=== PATIENT | female | born 1995 | race Caucasian/White ===

== ENCOUNTER 2018-04-06 11:58 | Inpatient (IN) ==
[2018-04-06] MEDS ORDERED: LIDOCAINE HCL 50 ML VIAL PERI PRN (12:25)
[2018-04-06] MEDS ORDERED: RINGER'S SOLUTION,LACTATED 1,000 ML IV ONE (12:25)
[2018-04-06] MEDS ORDERED: OXYTOCIN/DEXTROSE 5%-WATER 30 UNITS/500 ML BAG IV ONE ×2 (12:25→14:40)
[2018-04-06] MEDS ORDERED: ONDANSETRON HCL/PF 2 MG/ML VIAL IV PRN ×2 (12:25→12:30)
[2018-04-06] MEDS ORDERED: RINGER'S SOLUTION,LACTATED 1,000 ML IV PRN (12:25)
[2018-04-06] MEDS ORDERED: NALBUPHINE HCL 10 MG/ML AMPUL IV PRN ×2 (12:25)
[2018-04-06] MEDS ORDERED: NALOXONE HCL 1 MG/1 ML SYRG IV PRN (12:30)
[2018-04-06] MEDS ORDERED: BUPIVACAINE HCL/PF 30 ML VIAL EP SCH (12:30)
[2018-04-06] MEDS ORDERED: BUPIVACAINE HCL/0.9 % NACL/PF 250 ML EP PRN (12:30)
--- NOTE | 2018-04-06 12:40 | HP ---
Chief Complaint - Chief Complaint Date of Service: 04/06/18 Time of Service: 12:30 Chief Complaint: Labor History of Present Illness: The patient presents to labor and delivery complaining of contractions and lots of discharge/mucosy or bloody. Denies roberto carlos vaginal bleeding or loss of fluid. Fetus is active. Medical History (Last Reviewed 03/13/18 @ 13:20 by Jack Brown RN) Hemorrhoids Onset Date: Unknown Recurrent loss, currently Onset Date: ~07/26/14 Spontaneous Onset Date: ~10/2013 approx. 8 wks Threatened Onset Date: ~07/26/14 Threatened labor Onset Date: 02/14/16 shortened cervix Thrombocytopenia affecting 12/27/14, 09/17/17 Depression Onset Date: ~04/2014 tx'd with wellbutrin. Stopped medication after 1 month d/t ineffectiveness Anemia Onset Date: 01/27/162015 & 2018-with pregnancies Family History: Family History (Last Reviewed 03/13/18 @ 13:20 by Jack Brown RN) Aunt Breast cancer Father Thyroid cancer Mother Diabetes resolved with diet Hypertension Anxiety Social History: Preferred Language Syriac Smoking Status Never smoker Abuse History No History of abuse Psych History Hx of Depression (Last Updated 04/02/18 @ 10:11 by Ken Farias DO) No Social History Section defined Review Of Systems (GEN) - Review of Systems Generalized/Overall Review: Present: No Symptoms Reported Misc: All systems neg except as marked Immunizations: IMMUNIZATION HX Immunizations Up to Date Yes History of Influenza Vaccine No Hx Pneumococcal Vaccination No Allergies/Adverse Reactions: Allergies Allergy/AdvReac Type Severity Reaction Status Date / Time No Known Allergies Allergy Verified 03/13/18 13:20 Home Medications: HOME MEDICATIONS Vits96/Iron Fum/Folic [ S] 1 tab PO DAILY 03/01/15 [Last Taken 04/01/16 19:36] psyllium husk 3.4 gram/5.4 gram oral powder 1 tbs PO TID 04/02/18 [Last Taken Unknown] Exam - Exam Vital Signs: 115/80 101 18 37 C Constitutional: Present: Alert, Oriented x3, Cooperative Abdomen: Present: soft, nontender, nondistended Extremity: Present: non-tender, no calf tenderness Skin Exam: Present: normal color, warm/dry, no cyanosis Appearance: Present: appropriate appearance Eye contact: Present: cooperative Thoughts: Present: normal thought pattern Assessment/Plan - Narrative Narrative: 22 yo @ 37w 2d in active labor and ruptured History of thrombocytopenia this . Check CBC. GBS negative: GBS prophylaxis not indicated
[2018-04-06 12:59] LABS: Hematocrit 31.8 % (37.0-47.0); Hemoglobin 10.3 gm/dL (12.5-16.0); Mean Cell Volume 84.1 fl (78-100); Mean Corpuscular Hemoglobin 27.2 pg (27-31); Mean Corpuscular Hgb Conc 32.4 g/dl (32-36); Mean Platelet Volume 11.2 fl (8-12.5); Neutrophil % 81.6 % (42-75.0); Platelet Count 119 K/mm3 (150-450); Red Blood Count 3.78 M/mm3 (4.2-5.4); Red Cell Distribution Width 12.7 % (11.5-14.0); White Blood Count 15.9 K/mm3 (4.0-10.5)
--- NOTE | 2018-04-06 13:06 | ANES ---
Anesthesia Pre Procedure Eval Vitals/Labs: Last Vital Signs Temp 37.0 C 04/06/18 13:01 Pulse 101 H 04/06/18 13:01 Resp 18 04/06/18 13:01 BP 115/80 04/06/18 13:01 Pulse Ox 100 04/06/18 13:01 Laboratory Last Values WBC 15.9 K/mm3 (4.0-10.5) H 04/06/18 12:51 RBC 3.78 M/mm3 (4.2-5.4) L 04/06/18 12:51 Hgb 10.3 gm/dL (12.5-16.0) L 04/06/18 12:51 Hct 31.8 % (37.0-47.0) L 04/06/18 12:51 MCV 84.1 fl (78-100) 04/06/18 12:51 MCH 27.2 pg (27-31) 04/06/18 12:51 MCHC 32.4 g/dl (32-36) 04/06/18 12:51 RDW 12.7 % (11.5-14.0) 04/06/18 12:51 Plt Count 119 K/mm3 (150-450) L 04/06/18 12:51 MPV 11.2 fl (8-12.5) 04/06/18 12:51 Immature Gran % (Auto) 2.20 % (0.001-0.429) H 04/06/18 12:51 Immature Gran # (Auto) 0.35 K/mm3 (0.000-0.0310) H 04/06/18 12:51 Neutrophils % 81.6 % (42-75.0) H 04/06/18 12:51 Lymphocytes % 8.5 % (20-51) L 04/06/18 12:51 Monocytes % 7.0 % (0.0-9) 04/06/18 12:51 Eosinophils % 0.4 % (0.0-3.0) 04/06/18 12:51 Basophils % 0.3 % (0.0-1.0) 04/06/18 12:51 Nucleated RBC % 0.0 k/mm3 (0-1) 04/06/18 12:51 Neutrophils # 13.0 K/mm3 (1.3-6.0) H 04/06/18 12:51 Lymphocytes # 1.35 k/mm3 (1.5-3.5) L 04/06/18 12:51 Monocytes # 1.1 k/mm3 (0.0-1.0) H 04/06/18 12:51 Eosinophils # 0.1 k/mm3 (0.0-0.7) 04/06/18 12:51 Absolute Basophils 0.0 k/mm3 (0.0-0.1) 04/06/18 12:51 HOME MEDICATIONS Vits96/Iron Fum/Folic [ S] 1 tab PO DAILY 03/01/15 [Last Taken 04/01/16 19:36] psyllium husk 3.4 gram/5.4 gram oral powder 1 tbs PO TID 04/02/18 [Last Taken Unknown] Allergies/Adverse Reactions: Allergies Allergy/AdvReac Type Severity Reaction Status Date / Time No Known Allergies Allergy Verified 04/06/18 13:00 - Planned Procedure Planned Procedure: labor epidural Medication List Reviewed:: Yes Allergies Verified: Yes Medical History (Last Reviewed 04/06/18 @ 13:05 by Evans Delaney CRNA) Hemorrhoids Onset Date: Unknown Recurrent loss, currently Onset Date: ~07/26/14 Spontaneous Onset Date: ~10/2013 approx. 8 wks Threatened Onset Date: ~07/26/14 Threatened labor Onset Date: 02/14/16 shortened cervix Thrombocytopenia affecting 12/27/14, 09/17/17 Depression Onset Date: ~04/2014 tx'd with wellbutrin. Stopped medication after 1 month d/t ineffectiveness Anemia Onset Date: 01/27/16 2016 & 2018-with pregnancies Family History (Last Reviewed 04/06/18 @ 13:05 by Evans Delaney CRNA) Aunt Breast cancer Father Thyroid cancer Mother Diabetes resolved with diet Hypertension Anxiety - Anesthesia Assessment and Plan ASA Class: PS, II Anesthesia Type Plan: Epidural
--- NOTE | 2018-04-06 13:25 | ANES ---
Anesthesia Procedure Note Procedure Note: ANESTHESIA PROCEDURE NOTE Date of Procedure: 04/06/2018. Time of procedure: 1310. Performed by: Evans Delaney CRNA Head Strength And Conditioning Coach: None. Preprocedure diagnosis: Active labor. Post procedure diagnosis: Same. Procedure: Insertion of labor epidural. Indications: The patient is a 22 -year-old female in active labor requesting labor epidural for pain management. Findings: See below. Details of the procedure: The patient was placed in a sitting position. DuraPrep as well as Betadine swabs X3 was applied to the patient's back. Patient was then draped in a sterile fashion. Lidocaine 1% was infiltrated to the skin and subcutaneous tissues at the level of the L3-4 interspace. The epidural space was identified using a 18-gauge Tuohy needle with [id number] technique. Epidural catheter was inserted to a depth of 9 centimeters at skin. Negative test dose was elicited using 3 mL of 1.5% preservative-free lidocaine plus epinephrine 1 200,000. The epidural catheter was then taped and secured in place. A loading dose of 8 mL of 0.25% preservative-free bupivacaine was administered to the epidural catheter after negative aspiration for blood and CSF. EBL: Minimal. Fluids: N/A. Specimen: N/A. Post procedure condition: The patient tolerated the procedure well. No complications were noted. Thank you for this consultation. Evans Delaney CRNA
--- NOTE | 2018-04-06 13:26 | ANES ---
Post Anesthesia Assessment - Vital Signs Vitals: Last Vital Signs Temp 36.8 C 04/06/18 13:19 Pulse 106 H 04/06/18 13:19 Resp 20 04/06/18 13:19 BP 114/69 04/06/18 13:19 Pulse Ox 99 04/06/18 13:19 Airway Patency: Normal - Mental Status Level Of Consciousness: Awake - N/V Assessment Nausea/Vomiting Presence: None Dehydration:: No
[2018-04-06 14:10] LABS: Cocaine Ur Negative (NEGATIVE); Urine Barbiturate Negative (NEGATIVE); Urine Benzodiazepines Negative (NEGATIVE); Urine Opiates Negative (NEGATIVE); Urine PCP Negative (NEGATIVE); Urine THC Negative (NEGATIVE)
--- NOTE | 2018-04-06 14:39 | OR ---
Operative Report - Dictated Report Narrative: Date: 04/06/2018 Time of delivery: 1324 Gender: male weight: 3035 grams APGARS: 9/9 The patient is a 22 yo @ 37w 2d who presented to labor and delivery ruptured and in active labor. She progressed to complete dilation. The delivered in the NIDHI presentation over an intact perineum. A loose nuchal cord was reduced. Cord clamping was delayed for 60 seconds. The placenta was delivered by expression and appeared intact. No lacerations were noted. Lacerations: none EBL: 50 mL Complications: none
[2018-04-06] MEDS ORDERED: oxyCODONE HCL/ACETAMINOPHEN 1 TAB TABLET PO PRN (14:40)
[2018-04-06] MEDS ORDERED: GLYCERIN/WITCH HAZEL LEAF 40 APPL BOX TP PRN (14:40)
[2018-04-06] MEDS ORDERED: BENZOCAINE/MENTHOL 81 SPRAY CAN TP PRN (14:40)
[2018-04-06] MEDS ORDERED: HYDROCORTISONE 30 APPL TUBE TP PRN (14:40)
[2018-04-06] MEDS ORDERED: diphenhydrAMINE HCL 25 MG CAPSULE PO PRN (14:40)
[2018-04-06] MEDS ORDERED: BISACODYL 10 MG SUPP.RECT RC PRN (14:40)
[2018-04-06] MEDS ORDERED: SENNOSIDES 8.6 MG TABLET PO PRN (14:40)
[2018-04-06] MEDS: IBUPROFEN 800 MG TABLET PO PRN (17:55)
[2018-04-06] MEDS: oxyCODONE HCL/ACETAMINOPHEN 1 TAB TABLET PO PRN ×2 (17:55→21:40)
[2018-04-06] MEDS: DOCUSATE SODIUM 100 MG CAPSULE PO SCH (21:07)
[2018-04-07] MEDS: IBUPROFEN 800 MG TABLET PO PRN ×4 (00:07→17:42)
[2018-04-07] MEDS: oxyCODONE HCL/ACETAMINOPHEN 1 TAB TABLET PO PRN ×4 (06:11→21:13)
--- NOTE | 2018-04-07 07:34 | PN ---
Subjective - Date and Time Seen Date: 04/07/18 Time: 07:33 Subjective Narrative: Pt without complaints. VB is normal Objective Objective Narrative: See vital signs - Review of Systems Generalized/Overall Review: Reports: No Symptoms Reported Misc: All systems neg except as marked - Vitals Vitals: Last Vital Signs Temp 36.4 C 04/07/18 00:27 Pulse 86 04/07/18 00:27 Resp 16 04/07/18 00:27 BP 116/65 04/07/18 00:27 Pulse Ox 97 04/07/18 00:27 - Abnormal Lab Findings Abnormal Lab Findings: Abnormal Lab Results 04/06/18 Range/Units 12:51 WBC 15.9 H (4.0-10.5) K/mm3 RBC 3.78 L (4.2-5.4) M/mm3 Hgb 10.3 L (12.5-16.0) gm/dL Hct 31.8 L (37.0-47.0) % Plt Count 119 L (150-450) K/mm3 Immature Gran % (Auto) 2.20 H (0.001-0.429) % Immature Gran # (Auto) 0.35 H (0.000-0.0310) K/mm3 Neutrophils % 81.6 H (42-75.0) % Lymphocytes % 8.5 L (20-51) % Neutrophils # 13.0 H (1.3-6.0) K/mm3 Lymphocytes # 1.35 L (1.5-3.5) k/mm3 Monocytes # 1.1 H (0.0-1.0) k/mm3 - Exam Constitutional: Present: Alert, Oriented x3, Cooperative, No distress Abdomen: Present: soft, nontender, nondistended - fundus is firm Extremity: Present: non-tender, no calf tenderness Skin Exam: Present: normal color, warm/dry, no cyanosis Appearance: Present: appropriate appearance Eye contact: Present: cooperative Thoughts: Present: normal thought pattern Assessment/Plan Plan Narrative: PPD 1 s/p Doing well Discharge tomorrow
[2018-04-07] MEDS: DOCUSATE SODIUM 100 MG CAPSULE PO SCH ×2 (10:00→21:13)
[2018-04-08] MEDS: oxyCODONE HCL/ACETAMINOPHEN 1 TAB TABLET PO PRN ×2 (00:28→10:38)
[2018-04-08] MEDS: IBUPROFEN 800 MG TABLET PO PRN ×2 (00:28→10:38)
--- NOTE | 2018-04-08 07:29 | PN ---
Subjective - Date and Time Seen Date: 04/08/18 Time: 07:27 Subjective Narrative: Pt without complaints. VB is normal Objective Objective Narrative: See vital signs - Review of Systems Generalized/Overall Review: Reports: No Symptoms Reported Misc: All systems neg except as marked - Vitals Vitals: Last Vital Signs Temp 36.4 C 04/08/18 00:29 Pulse 72 04/08/18 00:29 Resp 16 04/08/18 00:29 BP 137/77 04/08/18 00:29 Pulse Ox 97 04/08/18 00:29 - Exam Constitutional: Present: Alert, Oriented x3, Cooperative, No distress Abdomen: Present: soft, nontender, nondistended Extremity: Present: non-tender, no calf tenderness Skin Exam: Present: normal color, warm/dry, no cyanosis Appearance: Present: appropriate appearance Eye contact: Present: cooperative Thoughts: Present: normal thought pattern Assessment/Plan Plan Narrative: PPD 2 s/p Doing well Discharge home
[2018-04-08] MEDS: DOCUSATE SODIUM 100 MG CAPSULE PO SCH (10:38)
[2018-04-08 13:29] VITALS: BP 105/71
== END 2018-04-08 11:20 | disposition home or self-care (01) | DRG 807 ==
LOC: OBCLINIC 11:58 → OB 12:23
PROVIDERS: ADMIT Obstetrics & Gynecology; ATTEND Obstetrics & Gynecology
CPT/HCPCS: 36415; 59025; 80307; 85025; 86850; 86900

== ENCOUNTER 2020-05-17 05:58 | Inpatient (IN) ==
[2020-05-17] MEDS ORDERED: NALOXONE HCL 1 MG/1 ML SYRG IV PRN (06:48)
[2020-05-17] MEDS ORDERED: ONDANSETRON HCL/PF 2 MG/ML VIAL IV PRN (06:48)
[2020-05-17] MEDS ORDERED: BUPIVACAINE HCL/0.9 % NACL/PF 250 ML EP PRN (06:48)
[2020-05-17 06:49] LABS: Hematocrit 32.5 % (37.0-47.0); Hemoglobin 10.6 gm/dL (12.5-16.0); Mean Cell Volume 88.8 fl (78-100); Mean Corpuscular Hgb Conc 32.6 g/dl (32-36); Mean Platelet Volume 11.7 fl (8-12.5); Neutrophil % 66.1 % (42-75.0); Platelet Count 144 K/mm3 (150-450); Red Blood Count 3.66 M/mm3 (4.2-5.4); Red Cell Distribution Width 12.7 % (11.5-14.0); White Blood Count 10.6 K/mm3 (4.0-10.5)
--- NOTE | 2020-05-17 06:56 | ANES ---
Anesthesia Pre Procedure Eval HOME MEDICATIONS prenat.vits,devonte,kwu-ngnr-oyukn 1 tab PO DAILY 10/20/19 [Last Taken Unknown] ferrous sulfate 325 mg (65 mg iron) tablet,delayed release 325 mg PO BID #30 tab 02/29/20 [Last Taken Unknown] Allergies/Adverse Reactions: Allergies Allergy/AdvReac Type Severity Reaction Status Date / Time No Known Allergies Allergy Verified 05/17/20 06:07 - Planned Procedure Planned Procedure: Epidural placement for labor analgesia Medication List Reviewed:: Yes Allergies Verified: Yes Medical History (Last Reviewed 05/17/20 @ 06:54 by Solo Barry CRNA) Anxiety and depression (Inactive) Gestational thrombocytopenia (Resolved) Anemia (Resolved) Onset Date: 01/27/162015,2017, 2019-with pregnancies Hemorrhoids Onset Date: Unknown Recurrent loss, currently Onset Date: ~07/26/14 Spontaneous Onset Date: ~10/2013 approx. 8 wks Threatened Onset Date: ~07/26/14 Threatened labor Onset Date: 02/14/16 shortened cervix Thrombocytopenia affecting Onset Date: 10/20/19 12/27/14, 09/17/17 Depression Onset Date: ~04/2014 tx'd with wellbutrin. Stopped medication after 1 month d/t ineffectiveness Surgical History (Last Reviewed 05/17/20 @ 06:54 by Solo Barry CRNA) No pertinent past surgical history Family History (Last Reviewed 05/17/20 @ 06:54 by Solo Barry CRNA) Aunt Breast cancer Father Thyroid cancer Mother Diabetes resolved with diet Hypertension Anxiety - Family Anesthesia History Family History:: no untoward family reactions to anesthesia, no familial bleeding tendencies, no family history of clotting disorders, no family history of premature - Airway/Neck/Teeth Within Normal Limits:: Yes Teeth Condition: intact Neck Exam: full range of motion Mallampatti Score: 2 Thyromental (T-M) distance: > 6 cm Mandibulo Hyoid distance: > 3 cm - Respiratory Respiratory Physical: lungs clear Smoking Status: Never smoker Sleep Apnea currently treated: No Sleep Apnea by current assessment: No - Cardiovascular Tolerate Activity: Fair Heart Sounds: S1 & S2, Regular - Gastrointestinal NPO since: 2400 - Anesthesia Assessment and Plan ASA Class: PS, II - platelettes 144, E
[2020-05-17] MEDS ORDERED: fentaNYL CITRATE/PF 50 MCG/ML AMPUL IT SCH (07:00)
--- NOTE | 2020-05-17 07:15 | ANES ---
Post Anesthesia Discharge - Transfer of Care Transfer of Care handoff given to nurse: Yes - Discharge from PACU Discharge from PACU when meets criteria: Yes - Comfortable post CSE
--- NOTE | 2020-05-17 07:17 | ANES ---
Anesthesia Procedure Note Procedure Note: ANESTHESIA PROCEDURE NOTE Date of Procedure: 06/04/2019 Time of procedure: 655 AM. Performed by: WASHINGTON Fall CRNA, MSN Window Assembler: Zulay Cooper RN. Preprocedure diagnosis: Active labor labor pain. Post procedure diagnosis: Same. Procedure:Epidural for labor analgesia L3-4. Indications: Labor pain. Findings: See below. Details of the procedure: The patient was placed on the side of the bed in sitting positionand prepped with DuraPrep then draped in a sterile fashion. Lidocaine 1% was infiltrated to the skin and subcutaneous tissues at the level of the L3-4 interspace. An 18-gauge Touhy needle was used to approach the epidural space with loss of resistance technique. Once loss of resistance was achieved a 27-gauge spinal needle was passed through the epidural needle and CSF was contacted. After CSF returned, 20 mcg of fentanyl was injected in the spinal needle was removed the epidural catheter was then threaded approximately 4 cm in the epidural needle was removed. The catheter was taped in place and after careful aspiration 3 mL of 1.5% lidocaine with 1-200,000 epinephrine was injected without change in maternal heart rate or sensorium. . EBL: Minimal. Fluids: N/A. Specimen: N/A. Post procedure condition: The patient tolerated the procedure well with good relief. No complications were noted. Thank you for this consultation. Solo Barry CRNA, ARNP, MSN
[2020-05-17] MEDS ORDERED: RINGER'S SOLUTION,LACTATED 1,000 ML IV ONE (07:27)
[2020-05-17] MEDS ORDERED: ONDANSETRON 4 MG TAB.RAPDIS PO PRN (07:27)
[2020-05-17] MEDS ORDERED: OXYTOCIN/0.9 % SODIUM CHLORIDE 30 UNITS/500 ML BAG IV ONE ×2 (07:27→13:10)
[2020-05-17] MEDS ORDERED: DEXTROSE 5%-LACTATED RINGERS 1,000 ML IV PRN (07:27)
--- NOTE | 2020-05-17 08:20 | ANES ---
Post Anesthesia Assessment - Vital Signs Vitals: Last Vital Signs Temp 36.3 C 05/17/20 06:30 Pulse 105 H 05/17/20 06:30 Resp 18 05/17/20 06:30 BP 119/76 05/17/20 06:30 Pulse Ox 98 05/17/20 06:30 Airway Patency: Normal - Mental Status Level Of Consciousness: Awake, Alert, Appropriate - Pain Level Pain Score: 0 - N/V Assessment Nausea/Vomiting Presence: None Dehydration:: No
--- NOTE | 2020-05-17 08:32 | HP ---
Chief Complaint - Chief Complaint Date of Service: 05/17/20 Time of Service: 07:20 Chief Complaint: elective induction of labor History of Present Illness: 25 yo admitted to L&D at 39 wks for elective induciton of labor. This complicated by anemia, anxiety/depression, h/o GHTN, h/o gestational thrombocytopenia and h/p PTL. Rh positive Rubella immune GBS negative Medical History (Last Reviewed 05/17/20 @ 08:26 by Ken Farias DO) Anxiety and depression (Inactive) Gestational thrombocytopenia (Resolved) Anemia (Resolved) Onset Date: 01/27/162015,2017, 2019-with pregnancies Hemorrhoids Onset Date: Unknown Recurrent loss, currently Onset Date: ~07/26/14 Spontaneous Onset Date: ~10/2013 approx. 8 wks Threatened Onset Date: ~07/26/14 Threatened labor Onset Date: 02/14/16 shortened cervix Thrombocytopenia affecting Onset Date: 10/20/19 12/27/14, 09/17/17 Depression Onset Date: ~04/2014 tx'd with wellbutrin. 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 current occupational exposures/hazards: No Highest level of school completed/degree received: high school graduate Service: No Tobacco: Smoking Status: Never smoker Alcohol: alcohol intake: former Substance Use: substance use type: other details: former marijuana Dietary Habits: caffeine: Yes caffeine comment: 1-2 daily Type: carbonated beverages daily servings fruits/ve-4 daily servings of milk/calcium: 2-4 Exercise: Physical activity type: none Review Of Systems (GEN) - Review of Systems Generalized/Overall Review: Present: No Symptoms Reported EENTM: Present: No Symptoms Reported Respiratory: Present: No Symptoms Reported Cardiac: Present: No Symptoms Reported Abdominal: Present: Other - contractions Genitourinary: Present: No Symptoms Reported Musculoskeletal: Present: No Symptoms Reported Neurological: Present: No Symptoms Reported Skin: Present: No Symptoms Reported Endocrine: Present: No Symptoms Reported Immunizations: IMMUNIZATION HX Immunizations Up to Date Yes History of Influenza Vaccine No Hx Pneumococcal Vaccination No Allergies/Adverse Reactions: Allergies Allergy/AdvReac Type Severity Reaction Status Date / Time No Known Allergies Allergy Verified 05/17/20 06:07 Home Medications: HOME MEDICATIONS prenat.vits,devonte,amu-foki-cijuk 1 tab PO DAILY 10/20/19 [Last Taken Unknown] ferrous sulfate 325 mg (65 mg iron) tablet,delayed release 325 mg PO BID #30 tab 02/29/20 [Last Taken Unknown] Exam - Exam Vital Signs: Vital Signs - Last Taken Temp 36.3 C 05/17/20 06:30 Pulse 105 H 05/17/20 06:30 Resp 18 05/17/20 06:30 BP 119/76 05/17/20 06:30 Pulse Ox 98 05/17/20 06:30 Constitutional: Present: Alert, Oriented x3, Cooperative, No distress ENT Exam: Present: hearing grossly normal Neck: Present: non-tender. Absent: thyromegaly Breasts: Present: Exam deferred Respiratory: Present: lungs clear, no respiratory distress Cardiovascular/Chest: Present: regular rate, rhythm, no edema Abdomen: Present: soft, nontender, no rebound tenderness, other - Gravid /Rectal: Present: Other - Cervix 4-5/80/-1 Extremity: Present: no pedal edema, no calf tenderness Skin Exam: Present: normal color, warm/dry, no cyanosis Lymphatic: Present: no adenopathy Neurologic: Present: alert, normal mood/affect, oriented x 3 Appearance: Present: appropriate appearance, appropriate insight Eye contact: Present: cooperative, good eye contact Thoughts: Present: normal thought pattern, normal mood /affect Diagnostic Studies: Abnormal Lab Results 05/17/20 Range/Units 06:35 WBC 10.6 H (4.0-10.5) K/mm3 RBC 3.66 L (4.2-5.4) M/mm3 Hgb 10.6 L (12.5-16.0) gm/dL Hct 32.5 L (37.0-47.0) % Plt Count 144 L (150-450) K/mm3 Immature Gran % (Auto) 2.10 H (0.001-0.429) % Immature Gran # (Auto) 0.22 H (0.000-0.0310) K/mm3 Lymphocytes % 19.8 L (20-51) % Neutrophils # 7.0 H (1.3-6.0) K/mm3 Laboratory Results WBC 10.6 K/mm3 (4.0-10.5) H 05/17/20 06:35 RBC 3.66 M/mm3 (4.2-5.4) L 05/17/20 06:35 Hgb 10.6 gm/dL (12.5-16.0) L 05/17/20 06:35 Hct 32.5 % (37.0-47.0) L 05/17/20 06:35 MCV 88.8 fl (78-100) 05/17/20 06:35 MCH 29.0 pg (27-31) 05/17/20 06:35 MCHC 32.6 g/dl (32-36) 05/17/20 06:35 RDW 12.7 % (11.5-14.0) 05/17/20 06:35 Plt Count 144 K/mm3 (150-450) L 05/17/20 06:35 MPV 11.7 fl (8-12.5) 05/17/20 06:35 Immature Gran % (Auto) 2.10 % (0.001-0.429) H 05/17/20 06:35 Immature Gran # (Auto) 0.22 K/mm3 (0.000-0.0310) H 05/17/20 06:35 Neutrophils % 66.1 % (42-75.0) 05/17/20 06:35 Lymphocytes % 19.8 % (20-51) L 05/17/20 06:35 Monocytes % 8.9 % (0.0-9) 05/17/20 06:35 Eosinophils % 2.4 % (0.0-3.0) 05/17/20 06:35 Basophils % 0.7 % (0.0-1.0) 05/17/20 06:35 Nucleated RBC % 0.0 k/mm3 (0-1) 05/17/20 06:35 Neutrophils # 7.0 K/mm3 (1.3-6.0) H 05/17/20 06:35 Lymphocytes # 2.09 k/mm3 (1.5-3.5) 05/17/20 06:35 Monocytes # 0.9 k/mm3 (0.0-1.0) 05/17/20 06:35 Eosinophils # 0.3 k/mm3 (0.0-0.7) 05/17/20 06:35 Absolute Basophils 0.1 k/mm3 (0.0-0.1) 05/17/20 06:35 Assessment/Plan - Assessment/Plan (1) Encounter for elective induction of labor Problem: Acute (2) Anxiety and depression Problem: Inactive (3) Anemia Problem: Chronic Qualifiers: Anemia type: iron deficiency Iron deficiency anemia type: inadequate dietary iron intake Qualified Code(s): D50.8 - Other iron deficiency anemias
--- NOTE | 2020-05-17 08:34 | PN ---
Progess Note - Interim Date: 05/17/20 Time: 07:30 Narrative: 05/17/20 08:32 Patient comfortable with epidural Vital signs stable. Pitocin at mu/min. FHT: 120 baseline, reassuring contractions q 4-5 min Cervix: 5/80/-1, AROM-clear at 0730 Impression: Intrauterine at 39 weeks elective induction of labor for advanced cervical dilation with a history of rapid labors Plan: Continue present plan
[2020-05-17] MEDS ORDERED: GLYCERIN/WITCH HAZEL LEAF 40 APPL BOX TP PRN (13:10)
[2020-05-17] MEDS ORDERED: HYDROCORTISONE 30 APPL TUBE TP PRN (13:10)
[2020-05-17] MEDS ORDERED: BENZOCAINE/MENTHOL 81 SPRAY CAN TP PRN (13:10)
[2020-05-17] MEDS ORDERED: BISACODYL 10 MG SUPP.RECT RC PRN (13:10)
[2020-05-17] MEDS ORDERED: SENNOSIDES 8.6 MG TABLET PO PRN (13:10)
--- NOTE | 2020-05-17 13:16 | OR ---
Operative Report - Dictated Report Narrative: Spontaneous vaginal delivery of viable female at 1253 on 05/17/2020 with Apgars 7 and 9, weighing 3308 g in NIDHI position with tight nuchal cord x1. Cord clamping delayed approximately 1.5 minutes Placenta delivered complete, intact, with three vessel cord Estimated blood loss: Less than 50 ml Anesthesia: Epidural Lacerations: None History for MU History for Definition: * The number of deliveries resulting in a live the patient experienced prior to current hospitalization * The previous delivery of live twins or any live multiple gestation is considered one live event. *If primagravida or nulliparous is documented select zero for the number of previous live births. Live Events: Live Events: 3
[2020-05-17] MEDS: IBUPROFEN 800 MG TABLET PO PRN ×2 (15:00→21:08)
[2020-05-17] MEDS: oxyCODONE HCL/ACETAMINOPHEN 1 TAB TABLET PO PRN ×3 (15:33→22:32)
[2020-05-17] MEDS: FERROUS SULFATE 325 MG TABLET PO SCH (20:51)
[2020-05-17] MEDS: DOCUSATE SODIUM 100 MG CAPSULE PO SCH (20:51)
[2020-05-18] MEDS: oxyCODONE HCL/ACETAMINOPHEN 1 TAB TABLET PO PRN ×6 (02:05→21:05)
[2020-05-18] MEDS: IBUPROFEN 800 MG TABLET PO PRN ×4 (03:11→21:36)
[2020-05-18] MEDS: DOCUSATE SODIUM 100 MG CAPSULE PO SCH ×2 (08:41→20:23)
[2020-05-18] MEDS: FERROUS SULFATE 325 MG TABLET PO SCH ×2 (08:41→21:06)
[2020-05-18] MEDS ORDERED: PRENATAL VITS96/IRON FUM/FOLIC 1 TAB TABLET PO SCH (09:00)
--- NOTE | 2020-05-18 09:29 | PN ---
Subjective - Date and Time Seen Date: 05/18/20 Time: 08:55 Objective - Vitals Vitals: Last Vital Signs Temp 37.3 C 05/18/20 06:42 Pulse 80 05/18/20 06:42 Resp 18 05/18/20 06:42 BP 109/55 05/18/20 06:42 Pulse Ox 97 05/18/20 06:42 Patient denies complaints. Lochia wnl abdomen - soft, nontender Uterus -firm, at umbilicus - 1 No calf tenderness Impression: day #1 - s/p spontaneous vaginal delivery. Plan: Continue routine care Cauti Physician Documentation - Urinary Catheter Management Urethral (Ramirez) Date of Insertion: 05/17/20 Time of Insertion: 07:10 Date of Removal: 05/17/20 Time of Removal: 12:50 Assessment/Plan - Problems/Diagnosis (1) Encounter for elective induction of labor Problem: Acute (2) Anxiety and depression Problem: Inactive (3) Anemia Problem: Chronic Qualifiers: Anemia type: iron deficiency Iron deficiency anemia type: inadequate dietary iron intake Qualified Code(s): D50.8 - Other iron deficiency anemias
[2020-05-19] MEDS: IBUPROFEN 800 MG TABLET PO PRN (03:58)
[2020-05-19 08:26] VITALS: BP 113/67
--- NOTE | 2020-05-19 08:28 | PN ---
Subjective - Date and Time Seen Date: 05/19/20 Time: 08:28 Objective - Vitals Vitals: Last Vital Signs Temp 36.6 C 05/19/20 08:25 Pulse 76 05/19/20 08:25 Resp 16 05/19/20 08:25 BP 113/67 05/19/20 08:25 Pulse Ox 97 05/19/20 08:25 Patient denies complaints. Bottlefeeding Lochia wnl abdomen - soft, nontender Uterus -firm, at umbilicus - 2 No calf tenderness Impression: day #2 - s/p spontaneous vaginal delivery. Plan: Routine discharge instructions Cauti Physician Documentation - Urinary Catheter Management Urethral (Ramirez) Date of Insertion: 05/17/20 Time of Insertion: 07:10 Date of Removal: 05/17/20 Time of Removal: 12:50 Assessment/Plan - Problems/Diagnosis (1) Encounter for elective induction of labor Problem: Acute (2) Anxiety and depression Problem: Inactive (3) Anemia Problem: Chronic Qualifiers: Anemia type: iron deficiency Iron deficiency anemia type: inadequate dietary iron intake Qualified Code(s): D50.8 - Other iron deficiency anemias
--- NOTE | 2020-05-19 08:31 | DS ---
OB Discharge Summary (1) Encounter for elective induction of labor Status: Resolved (2) Anxiety and depression Status: Inactive (3) Anemia Status: Chronic Qualifiers: Anemia type: iron deficiency Iron deficiency anemia type: inadequate dietary iron intake Qualified Code(s): D50.8 - Other iron deficiency anemias Delivery Date: 05/17/20 Delivery Time: 12:53 :: 6 Para:: 3 Gestational weeks:: 39 Gestational days:: 0 Intrapartum Procedures: Spontaneous Vaginal Delivery, Anesthesia - Epidural Procedures: None /OP Complications: No Complications Discharge Diagnosis: Term -Delivered - Discharge Information Date of Discharge: 05/19/20 Hospital Course: 25-year-old 6 now para 4 admitted for elective induction of labor which went uneventfully. Her course was also uncomplicated and she was d ischarged with routine discharge instructions. Discharge Location: Home Condition: Good Activity on Discharge:: Activity as tolerated, Pelvic Rest Discharge Diet: General/regular food Additional Patient Instructions (free text): Fabian's follow up appt is tomorrow, Saturday05/20/20 @ Her Blood Type is A+. Her Weight Today is 7 pounds 1.6 oz. Her Bilirubin is 8.2 at 40 hours of age. Feed her on demand or at least every 3-[address] her on her back in her own crib or bassinet for sleep. No pillows, blankets, stuffed animals, or bumper pads in her sleep space. Kenisha, Your follow up appt is on with Dr Farias. Please call with any questions/concerns. [facility] [phone], [facility] [phone], [facility] [phone]. Complete Home Medications List: Complete Home Medication List: prenat.vits,devonte,jkn-smxj-rfucb 1 tab PO DAILY 10/20/19 ferrous sulfate 325 mg (65 mg iron) tablet,delayed release 325 mg PO BID #30 tab 02/29/20 - Plan Discharge to:: Home Follow up in office in:: 3-4 weeks - Reading Information Weight (Grams): 3,308 Infant Sex: Female Score 1 min: 7 Score 5 min: 9 Complications: Other Other Complications: NC x 1
== END 2020-05-19 10:20 | disposition home or self-care (01) | DRG 807 ==
LOC: OB 05:58 → MS 05-18 11:47
PROVIDERS: ADMIT Obstetrics & Gynecology; ATTEND Obstetrics & Gynecology